=== PATIENT | female | born 1995 | race Two or more races ===

== ENCOUNTER 2025-01-11 19:33 | Inpatient (IN) | payer OTHER ==
[~2025-01-11] VITALS: Ht 157.5 cm; Wt 69.9 kg
[2025-01-11 19:06] VITALS: BP 129/75
[~2025-01-11 19:33] MED LIST: AMPICILLIN SODIUM 2,000 MG VIAL ONE; BETAMETHASONE ACETATE,SOD PHOS 30 MG/5 ML ML ONE; MAGNESIUM SULFATE IN WATER 0.04 GM/ML IV.SOLN IV ONE; MAGNESIUM SULFATE IN WATER 4 GM/100 ML PIGGYBACK IV ONE
[2025-01-11] MEDS ORDERED: PRENATAL TABLE1 EAC1 PO (19:52)
[2025-01-11] MEDS ORDERED: CHILDREN'S ASPI81 MG PO (19:52)
[2025-01-11] MEDS ORDERED: AMPICILLIN SODIUM 2,000 MG VIAL IV ONE (20:00)
[2025-01-11] MEDS ORDERED: MAGNESIUM SULFATE IN WATER 500 ML IV SCH (20:00)
[2025-01-11] MEDS ORDERED: BETAMETHASONE ACETATE,SOD PHOS 30 MG/5 ML ML IM SCH (20:00)
[2025-01-11] MEDS ORDERED: MAGNESIUM SULFATE IN WATER 100 ML IV ONE (20:00)
[2025-01-11] MEDS ORDERED: RINGERS SOLUTION,LACTATED 1,000 ML IV SCH (20:30)
[2025-01-11 20:51] LABS: BASO % 0.2 % (0.1-1.2); EOS # 0.07 (0.04-0.54); EOS % 1.1 % (0.7-7.0); LYMPH # 1.70 (1.18-3.74); LYMPH % 27.4 % (19.3-53.1); MEAN PLATELET VOLUME 11.20 fl (9.4-12.4); MONO # 0.51 (0.24-0.82); MONO % 8.2 % (4.7-12.5); NEUT # 3.89 (1.56-6.13); NEUT % 62.8 % (34.0-71.1); RED CELL DISTRIBUTION WIDTH 12.5 % (11.6-14.4)
[2025-01-11 21:10] LABS: INR 0.98
[2025-01-11 21:15] LABS: ALT/SGPT 19.0 U/L (12-78); AST/SGOT 14.0 U/L (15-37); BILIRUBIN TOTAL 0.3 mg/dL (0.3-1.2); BUN CREA RATIO 14.0 (7.0-25.0); CREATININE SERUM 0.5 mg/dL (0.55-1.02); GFR 146.91; GLOBULINA 3.6 G/DL (2.4-3.5); GLUCOSE FASTING 75.0 mg/dL (65-100); OSMOLALITY SERUM 280.0 MOSM/KG (275-295)
[2025-01-11 23:26] VITALS: BP 116/70
[2025-01-12] MEDS ORDERED: AMPICILLIN SODIUM 1,000 MG VIAL IV SCH
[2025-01-12 03:35] VITALS: BP 109/60
[2025-01-12 06:13] VITALS: BP 117/69; O2SAT 98
[2025-01-12] MEDS ORDERED: TERBUTALINE SULFATE 1 MG/ML AMPUL ONE (08:40)
[2025-01-12] MEDS ORDERED: TERBUTALINE SULFATE 1 MG/ML AMPUL SUBCUTANEO ONE (09:00)
[2025-01-12 10:38] VITALS: BP 113/65
[2025-01-12 15:08] VITALS: BP 117/62
[2025-01-12] MEDS ORDERED: ACETAMINOPHEN 500 MG GEL..CAP PO PRN (18:00)
[2025-01-12 19:36] VITALS: BP 111/67; O2SAT 98
[2025-01-12] MEDS ORDERED: BETAMETHASONE ACETATE,SOD PHOS 30 MG/5 ML ML IM SCH (20:00)
[2025-01-12 23:19] VITALS: BP 103/61
[2025-01-13] VITALS (7 sets, daily range): BP systolic 97–126; BP diastolic 54–79
[2025-01-13] MEDS ORDERED: OXYTOCIN 500 ML IV ONE (09:00)
[2025-01-13] MEDS ORDERED: OXYTOCIN 20 UNITS/1000ML RL PIGGYBAG IV ONE (09:33)
[2025-01-13] MEDS ORDERED: ERYTHROMYCIN BASE OPHT 1GM EACH TUBE OP ONE ×2 (09:33→13:00)
[2025-01-13] MEDS ORDERED: LIDOCAINE HCL 1% 10ML VIAL ONE (09:33)
[2025-01-13] MEDS ORDERED: CHLORHEXIDINE GLUCONATE 120 ML BOTTLE TOP ONE (09:33)
[2025-01-13] MEDS ORDERED: OXYTOCIN 1,000 ML IV SCH (12:45)
[2025-01-13] MEDS ORDERED: CHLORHEXIDINE GLUCONATE 120 ML BOTTLE TOP SCH (12:45)
[2025-01-14 02:41] VITALS: BP 102/60
[2025-01-14 08:00] VITALS: BP 114/66
[2025-01-14 17:41] VITALS: BP 114/65
[2025-01-15 01:32] VITALS: BP 125/80
[2025-01-15 04:20] VITALS: BP 115/71
[2025-01-15 08:00] VITALS: BP 104/68
== END 2025-01-15 15:34 | disposition home or self-care (01) | DRG 805 ==
LOC: OB/GYN 19:33 → LDR 19:33 → OB/GYN 01-13 12:50
PROVIDERS: ADMIT Obstetrics & Gynecology Gynecology; ATTEND Obstetrics & Gynecology Gynecology
PROC: 4A1HXCZ Monitoring of Products of Conception, Cardiac Rate, External Approach (ICD-10-PCS; 2025-01-11)
PROC: 10E0XZZ Delivery of Products of Conception, External Approach (ICD-10-PCS; principal; 2025-01-13)
PROC: 0UQMXZZ Repair Vulva, External Approach (ICD-10-PCS; 2025-01-13)
DX: O71.82 Other specified trauma to perineum and vulva (principal); O60.14X0 Preterm labor third trimester with preterm delivery third trimester, not applicable or unspecified; Z37.0 Single live birth; Z3A.35 35 weeks gestation of pregnancy